=== PATIENT | male | born 1940 | race Caucasian/White ===

== ENCOUNTER → 2017-05-22 | Outpatient (CLI) | payer MEDICARE ==
[~2017-05-22] MED LIST: CARVEDILOL6.25 MG PO; CLOPIDOGREL75 MG PO; FENOFIBRATE160 MG PO; HYDROCHLOROTH12.5 M1 PO; LISINOPRIL10 MG PO; SIMVASTATIN10 MG PO
== END ==
LOC: CARD 09:33
PROVIDERS: ATTEND Family Medicine
DX: I63.9 Cerebral infarction, unspecified (principal); I65.23 Occlusion and stenosis of bilateral carotid arteries
CPT/HCPCS: 93880

== ENCOUNTER → 2017-06-07 | Outpatient (CLI) | payer MEDICARE ==
--- NOTE | 2017-06-07 09:54 | Diagnostic Imaging Report ---
Exam: Head CT without contrast History: Possible CVA, left hemiparesis Comparison studies: None Technique: Axial images were obtained from the skull base to the vertex. Coronal and sagittal images reconstructed from the axial data. Intravenous contrast: None Findings: Scalp: No abnormalities. Bones: No fractures, blastic or lytic lesions. Brain sulci: Mildly prominent. Ventricles: Mild compensatory dilatation. No hydrocephalus. Extra-axial spaces: No masses, no fluid collection. Parenchyma: No mass, acute hemorrhage or acute cortical vascular insults. Scattered hypodensities throughout the deep and subcortical supratentorial white matter are nonspecific but most compatible with chronic small vessel ischemic changes. Sellar/suprasellar region: No abnormalities. Craniocervical junction: Patent foramen magnum. No Chiari one malformation. Incidental findings: Atherosclerotic calcifications in the carotid siphons. IMPRESSION: 1. No mass, acute hemorrhage or acute cortical vascular insults. 2. Mild generalized volume loss. 3. Moderate chronic microvascular ischemic changes. Signed by: Dr. Daron Klein M.D. on 06/07/2017 9:50 AM
--- NOTE | 2017-06-07 11:22 | Diagnostic Imaging Report ---
PROCEDURE:ABDOMINAL ULTRASOUND COMPARISON:None. INDICATIONS:SMOKER/AAA FINDINGS: Liver: 15.4 cm. Increased hepatic parenchymal echogenicity. No focal mass. Main portal vein: 1.0 cm. Hepatopedal flow. Gallbladder: No echogenic calculi, gallbladder wall thickening, or pericholecystic fluid. Common Bile Duct: 4.0 mm. No echogenic filling defect. Sonographic Lawton's sign: Negative. Right kidney: 9.2 cm. No solid or cystic mass, echogenic calculi, or hydronephrosis. Normal parenchymal echogenicity. Right renal simple cyst. Left kidney: 8.8 cm. No solid or cystic mass, echogenic calculi, or hydronephrosis. Normal parenchymal echogenicity. Spleen: 8.1 cm. No focal mass. The pancreas and aorta were insufficiently visualized for comment secondary to overlying bowel gas. Inferior vena cava: Normal. Aorta: Normal. Ascites: None. CONCLUSION: 1. No acute sonographic abnormality. 2. Hepatic steatosis. Dictated by: Gasotn Al M.D. on 06/07/2017 at 11:23 Electronically approved by: Gaston Al M.D. on 06/07/2017 at 11:23
== END ==
LOC: CT 08:46
PROVIDERS: ATTEND Family Medicine
DX: I69.854 Hemiplegia and hemiparesis following other cerebrovascular disease affecting left non-dominant side (principal); K76.0 Fatty (change of) liver, not elsewhere classified; F17.210 Nicotine dependence, cigarettes, uncomplicated
CPT/HCPCS: 70450; 76700

== ENCOUNTER → 2017-06-21 | Outpatient (CLI) | payer MEDICARE ==
--- NOTE | 2017-06-21 14:06 | Diagnostic Imaging Report ---
MRI of the thoracic lumbar spine without IV contrast. History: Left foot numbness Comparison studies: MRI of the lumbar spine 07/29/2011 Technique: Sagittal, coronal and axial T2 , sagittal T1 and IR, axial spin density oblique. Intravenous contrast: None Findings: Number of lumbar vertebral bodies:5 Alignment: Texture scoliosis at the lower lumbar spine centered at L4-L5.Mild left lateral listhesis of L2 over L3 and L3 over. Mild grade 1 anterolisthesis of L5 over S1. L4. Normal alignment of the thoracic spine. Soft tissues: No T2 hyperintense inflammatory changes. Exophytic renal cyst measuring approximately 3 cm arising from the right interpolar region. Subcentimeter cyst is seen at the left kidney upper pole. Thickened wall of the descending thoracic aorta secondary to atherosclerotic disease. Paraspinal muscles: Fatty infiltration of the paraspinal musculature secondary to atrophy more prominent on the left side. Lower thoracic cord:Normal in signal and morphology. The tip of the conus is at L1-L2. Cauda equina: No masses. No arachnoiditis. Vertebrae: Normal in height and signal intensity. No compression fractures, infection or neoplasm. Degenerative changes: Partially visualized posterior disc osteophyte complexes with disc degeneration at the lower cervical spine results in at least moderate canal stenosis Thoracic spine: Diffuse disc degeneration with loss of T2 signal. Obliterated intervertebral disc at T3-4. Grossly patent canal and foramina. Subcentimeter perineural foraminal cysts at T5-6. Lumbar spine: L1-L2: Disc degeneration with loss of T2 signal. Mild diffuse disc bulge and mild facet hypertrophy with patent canal and foramina, stable. L2-L3: Disc degeneration with loss of T2 signal and obliterated intervertebral space towards the right and associated mild Modic type I changes. Asymmetric left disc bulge, mild facet hypertrophy and ligamentum flavum thickening results in mild canal stenosis., Moderate right and mild left foraminal narrowing, mildly progressed. L3-L4: Disc degeneration with obliterated intervertebral space and Modic type II changes, improved endplate edema. Diffuse disc bulge and mild facet hypertrophy results in no canal stenosis and mild bilateral foraminal narrowing, stable. L4-L5: Disc degeneration with obliterated intervertebral space more prominent on the left. Diffuse disc bulge, mild right and moderate left facet hypertrophy results in mild canal stenosis, moderate right and severe left foraminal narrowing, mildly progressed. L5-S1: Disc degeneration with loss of T2 signal. Uncoverage of the superior disc, asymmetric left disc bulge with superimposed small central disc protrusion and moderate bilateral facet hypertrophy results in mild canal stenosis, moderate right and mild left foraminal narrowing. Trace of fluid at the left facet joint with mild periarticular inflammatory changes, stable. Additional findings: None IMPRESSION: Severe left degenerative foraminal narrowing at L4-L5 with possible impingement of the L4 nerve root, mildly progressed since previous examination. Mild Modic type I changes at L2-L3, mildly progressed. Moderate right and mild left degenerative foraminal narrowing at L2-L3, mildly progressed. Mild degenerative changes of the thoracic spine with grossly patent canal and foramina. Other stable degenerative changes of the lumbar spine as described above Signed by: DR Orlin Hairston M.D. on 06/21/2017 2:02 PM
== END ==
LOC: MRI 09:33
PROVIDERS: ATTEND Specialist
DX: M54.5 Low back pain (principal); R53.1 Weakness; R29.2 Abnormal reflex
CPT/HCPCS: 72146; 72148

== ENCOUNTER → 2019-09-09 | Day surgery (SDC) | payer MEDICARE ==
[2019-09-04 10:19] LABS: BASOPHILS # (AUTO) 0.1 (0.0-0.1); BASOPHILS % 0.8 % (0.0-1.0); EOSINOPHILS # (AUTO) 0.2 (0.0-0.4); EOSINOPHILS % 2.6 % (0.0-6.0); HEMATOCRIT 42.1 % (38.2-49.6); HEMOGLOBIN 13.5 g/dL (14.0-18.0); LYMPHOCYTES # (AUTO) 1.8 (1.0-3.2); LYMPHOCYTES % 30.2 % (18.0-39.1); MEAN CORPUSCULAR HEMOGLOBIN 30.6 pg (28-32); MEAN CORPUSCULAR HGB CONC 32.1 g/dL (31-35); MEAN CORPUSCULAR VOLUME 95.5 fL (81-99); MONOCYTES # (AUTO) 0.5 (0.2-0.8); MONOCYTES % 7.4 % (4.4-11.3); NEUTROPHILS # (AUTO) 3.6 (2.1-6.9); NEUTROPHILS % 58.7 % (38.7-80.0); PLATELET COUNT 192 x10e3/uL (140-360); RED BLOOD COUNT 4.41 x10e6/uL (4.3-5.7)
[2019-09-04 10:35] LABS: INR 0.92; PROTHROMBIN TIME 12.9 seconds (11.9-14.5)
[2019-09-04 10:44] LABS: ALBUMIN 3.7 g/dL (3.5-5.0); ALBUMIN/GLOBULIN RATIO 1.2 (0.8-2.0); ANION GAP 13.2 mmol/L (8-16); CREATININE, SERUM 1.94 mg/dL (0.72-1.25); POTASSIUM 4.2 mmol/L (3.5-5.1)
[2019-09-09] VITALS (16 sets, daily range): BP systolic 89–174; BP diastolic 59–109
[~2019-09-09] VITALS: Ht 172.7 cm; Wt 72.6 kg
[~2019-09-09] MED LIST changes: +ASPIRIN 325 MG TAB ONE; +ATORVASTATIN CA10 MG PO; +BIVALRIUDIN 250 MG/VIAL VIAL IV ONE; +EPTIFIBATIDE 10 ML ONE; +FENTANYL CITRATE/PF 100MCG/2 ML INJ ONE; +GABAPENTIN300 MG PO; +HEPARIN SOD (PORCINE) 1000 UNIT/ML 30ML ONE; +HEPARIN SOD/SOD CHLORIDE 2,000 ML ONE; +HYDROCODONE/APAP 5MG-325MG TAB ONE; +IOPAMIDOL 370 MG/ML 200 ML INFUS..BTL INJ ONE; +LIDOCAINE HCL 2% LOCAL 20 ML VIAL ONE; +MIDAZOLAM HCL 2 MG/2 ML VIAL ONE; +NAMENDA10 MG PO; +NITROGLYCERIN/D5W 200 MCG/ML 250 ML ONE; +PRASUGREL 10 MG TAB ONE; +SODIUM CHLORIDE 0.9% 1000ML 1,000 ML ONE; +SODIUM CHLORIDE 0.9% 50ML 50 ML ONE; +VERAPAMIL HCL 2.5 MG/ML 2 ML VIAL ONE
--- NOTE | 2019-09-09 08:45 | NUR ---
0845 pm RECEIVING NOTE [facility]............................................................... Bedside report received from XXXX RN. Identifierx2. Alert oriented and appropriate, PERRLA, respirations even and unlabored to room air. Pulses x4 extremities equal and strong. Pedal pulses PT/DP X4 and marked. Cap fill brisk < 3 sec. TR band NO gross issue pain pallor pressure or dysrhythmia TR band down at 1100am Skin warm and dry integrity appears D/I. IV 20g to left posterior iv site , presents healthy w/o s/s of infiltration or complaint.Infusing 100cc hr 0.9 NS, Abdomen soft and supple. pt offered toileting, denies need to urinate or defecate. No personal affects with patient. Family at bedside. Understands plan of care. Currently w/o complaint of pain or need. ds/rn
--- NOTE | 2019-09-09 09:34 | Operative Report ---
DATE OF PROCEDURE: 09/09/2019 SURGEON: Cal Vallecillo MD INDICATIONS: Coronary artery disease, angina with abnormal stress test. COMPLICATIONS: None. BLOOD LOSS: Minimal. RECOMMENDATIONS: Dual antiplatelet therapy for life. DESCRIPTION OF PROCEDURE: Access was obtained in the right radial artery using ultrasound guidance. A 5-Kazakh sheath was placed. The patient received intravenous Angiomax, oral prasugrel, and aspirin for anticoagulation as well as intracoronary Integrilin one bolus. Left main, mild disease. Left anterior descending artery, proximal 90%. Circumflex and remaining left anterior descending artery, diffuse 30% to 50% stenosis. Right coronary artery patent stent. Distal to the stent, 50% stenosis. A decision was made to intervene on the left anterior descending artery. The left main was cannulated using IR-1, 5-Kazakh guiding catheter. Short Runthrough wire was advanced for support. Primary stent 3.0 x 12 mm Synergy deployed at 16 atmospheres. Excellent end result, less than 10% residual stenosis, LISBET-3 flow, no complications. Wire and guide sheath removed. TR band applied. The patient discharged home the same day. Cal Vallecillo MD KSJorge/MODL /[id number]
--- NOTE | 2019-09-09 11:00 | NUR ---
1100amRADIAL/PEDAL COMPRESSION REMOVAL NOTE: Initial Cuff volume 13 cc 11am -3cc Removed No hematoma/bleeding noted with normal neurovascular function. 1115am -5cc Removed No hematoma/ bleeding noted with normal neurovascular function. 1130am -5cc Removed No hematoma/bleeding noted with normal neurovascular function. Air removal completed. Stasis achieved sterile 2x2,Tegaderm, Coban dressing No hematoma, bleeding noted with normal neurovascular function. Wrist splint in place. Pt instructed on POC. Ds/Rn
--- NOTE | 2019-09-09 11:15 | NUR ---
[id number] Vallecillo c/o back discomfort ordered Narco 325/5 x1 side rails up,call light at bedside,bed in low position and locked aware not to get up dc time 1300pm ds/rn
--- NOTE | 2019-09-09 12:15 | NUR ---
1215 states pain better ,ambulated with assistance to bathroom. Tolerated well for dc at 1300pm NO gross issues pain,pallor pressure or dysrhythmia. ds/rn
--- NOTE | 2019-09-09 13:00 | NUR ---
1300pm [facility]GE NURSING NOTE Pt meets DC criteria. Rt radial assessed for s/s of complication and presence of hematoma. Skin warm, dry, no discolor, and pulses present. IV removed from left forarm Distal tip appears intact. VS WNL. Pt denies pain, sob, or need at this time. Family at BS. Review of discharge paperwork and follow up instructions. verbalized understanding. Pt to wheelchair and transported to front of hospital. Transferred to private vehicle under own strength w/o incident with DC paperwork in hand. - luis/kaya
== END | disposition home or self-care (01) ==
LOC: CATH LAB 06:20
PROVIDERS: ATTEND Internal Medicine Interventional Cardiology
DX: I25.119 Atherosclerotic heart disease of native coronary artery with unspecified angina pectoris (principal); I10 Essential (primary) hypertension; E78.00 Pure hypercholesterolemia, unspecified; Z85.828 Personal history of other malignant neoplasm of skin; Z83.3 Family history of diabetes mellitus; Z82.49 Family history of ischemic heart disease and other diseases of the circulatory system; Z95.5 Presence of coronary angioplasty implant and graft; Z01.812 Encounter for preprocedural laboratory examination; Z11.59 Encounter for screening for other viral diseases
CPT/HCPCS: 93454; C9600; 36415; 80053; 85025; 85610; 92928; 99152; 99153; C1769; C1874; C1887; J0583; J1327; J1644; J2001; J2250; J3010; J7030; Q9967; U0002

== ENCOUNTER 2020-10-15 09:03 | Outpatient (RCR) | payer MEDICARE ==
[~2020-10-15 09:03] MED LIST changes: -ASPIRIN 325 MG TAB ONE; -BIVALRIUDIN 250 MG/VIAL VIAL IV ONE; -EPTIFIBATIDE 10 ML ONE; -FENTANYL CITRATE/PF 100MCG/2 ML INJ ONE; -HEPARIN SOD (PORCINE) 1000 UNIT/ML 30ML ONE; -HEPARIN SOD/SOD CHLORIDE 2,000 ML ONE; -HYDROCODONE/APAP 5MG-325MG TAB ONE; -IOPAMIDOL 370 MG/ML 200 ML INFUS..BTL INJ ONE; -LIDOCAINE HCL 2% LOCAL 20 ML VIAL ONE; -MIDAZOLAM HCL 2 MG/2 ML VIAL ONE; -NITROGLYCERIN/D5W 200 MCG/ML 250 ML ONE; -PRASUGREL 10 MG TAB ONE; -SODIUM CHLORIDE 0.9% 1000ML 1,000 ML ONE; -SODIUM CHLORIDE 0.9% 50ML 50 ML ONE; -VERAPAMIL HCL 2.5 MG/ML 2 ML VIAL ONE
== END 2020-10-19 ==
LOC: WCC 09:03
PROVIDERS: ATTEND Internal Medicine Infectious Disease
DX: I87.311 Chronic venous hypertension (idiopathic) with ulcer of right lower extremity (principal); I87.312 Chronic venous hypertension (idiopathic) with ulcer of left lower extremity; L97.811 Non-pressure chronic ulcer of other part of right lower leg limited to breakdown of skin; L97.321 Non-pressure chronic ulcer of left ankle limited to breakdown of skin; L97.421 Non-pressure chronic ulcer of left heel and midfoot limited to breakdown of skin; L97.821 Non-pressure chronic ulcer of other part of left lower leg limited to breakdown of skin; I87.2 Venous insufficiency (chronic) (peripheral); R60.0 Localized edema; L84 Corns and callosities; F03.90 Unspecified dementia, unspecified severity, without behavioral disturbance, psychotic disturbance, mood disturbance, and anxiety; R26.89 Other abnormalities of gait and mobility; R32 Unspecified urinary incontinence

== ENCOUNTER 2020-11-05 09:50 | Outpatient (RCR) | payer MEDICARE ==
[2020-11-10] MEDS ORDERED: VITAMIN D3250 MC1 (17:39)
[2020-11-10] MEDS ORDERED: CEFDINIR300 MG PO (18:21)
[2020-11-10] MEDS ORDERED: NYSTATIN-TRIAMC15 GM TOP (18:21)
== END 2020-11-18 ==
LOC: WCC 09:50
PROVIDERS: ATTEND Internal Medicine Infectious Disease
DX: L89.893 Pressure ulcer of other site, stage 3 (principal); I87.311 Chronic venous hypertension (idiopathic) with ulcer of right lower extremity; I87.312 Chronic venous hypertension (idiopathic) with ulcer of left lower extremity; L97.811 Non-pressure chronic ulcer of other part of right lower leg limited to breakdown of skin; L97.321 Non-pressure chronic ulcer of left ankle limited to breakdown of skin; L97.421 Non-pressure chronic ulcer of left heel and midfoot limited to breakdown of skin; L97.821 Non-pressure chronic ulcer of other part of left lower leg limited to breakdown of skin; S81.001A Unspecified open wound, right knee, initial encounter; I87.2 Venous insufficiency (chronic) (peripheral); R60.0 Localized edema; L84 Corns and callosities; F03.90 Unspecified dementia, unspecified severity, without behavioral disturbance, psychotic disturbance, mood disturbance, and anxiety; R26.89 Other abnormalities of gait and mobility; R32 Unspecified urinary incontinence
CPT/HCPCS: 36415; 85027

== ENCOUNTER 2020-11-10 17:02 | Emergency (ER) | payer MEDICARE ==
[~2020-11-10] VITALS: Ht 170.2 cm; Wt 74.8 kg
[2020-11-10] MEDS ORDERED: VITAMIN D3250 MC1 (17:39)
[2020-11-10] MEDS ORDERED: CEFDINIR300 MG PO (18:21)
[2020-11-10] MEDS ORDERED: NYSTATIN-TRIAMC15 GM TOP (18:21)
== END 2020-11-10 18:45 | disposition home or self-care (01) ==
LOC: FSED 17:40
DX: B35.4 Tinea corporis (principal); N30.00 Acute cystitis without hematuria; I10 Essential (primary) hypertension; E78.5 Hyperlipidemia, unspecified; I25.10 Atherosclerotic heart disease of native coronary artery without angina pectoris; M54.9 Dorsalgia, unspecified; G89.29 Other chronic pain; Z86.73 Personal history of transient ischemic attack (TIA), and cerebral infarction without residual deficits; Z95.5 Presence of coronary angioplasty implant and graft
CPT/HCPCS: 81003; 99282

== ENCOUNTER 2020-11-29 10:05 | Inpatient (IN) | payer MEDICARE ==
[~2020-11-29] VITALS: Ht 170.2 cm; Wt 54.4 kg
[2020-11-29] VITALS (7 sets, daily range): BP systolic 109–135; BP diastolic 77–101
[~2020-11-29 10:05] MED LIST changes: +CEFDINIR300 MG PO; +NYSTATIN-TRIAMC15 GM TOP; +VITAMIN D3250 MC1
[2020-11-29 10:34] LABS: BASOPHILS % 0.3 % (0.0-1.0); HEMATOCRIT 52.7 % (38.2-49.6); LYMPHOCYTES # (AUTO) 1.3 (1.0-3.2); LYMPHOCYTES % 21.7 % (18.0-39.1); MEAN CORPUSCULAR HEMOGLOBIN 31.4 pg (28-32); MEAN CORPUSCULAR HGB CONC 32.3 g/dL (31-35); MEAN CORPUSCULAR VOLUME 97.4 fL (81-99); MONOCYTES # (AUTO) 0.6 (0.2-0.8); NEUTROPHILS # (AUTO) 4.2 (2.1-6.9); NEUTROPHILS % 67.5 % (38.7-80.0); PLATELET COUNT 104 x10e3/uL (140-360); RED BLOOD COUNT 5.41 x10e6/uL (4.3-5.7); RED CELL DISTRIBUTION WIDTH 19.1 % (11.7-14.4)
[2020-11-29 10:53] LABS: ALBUMIN 3.5 g/dL (3.5-5.0); ALBUMIN/GLOBULIN RATIO 1.2 (0.8-2.0); ANION GAP 21.1 mmol/L (8-16); CALCIUM 9.3 mg/dL (8.4-10.2); CREATININE, SERUM 2.05 mg/dL (0.72-1.25); POTASSIUM 5.1 mmol/L (3.5-5.1)
[2020-11-29] MEDS ORDERED: SODIUM CHLORIDE 0.9% 1000ML 1,000 ML IV SCH (11:45)
[2020-11-29] MEDS ORDERED: ONDANSETRON HCL INJ 2MG/ML 2ML 2 MG/ML VIAL IV PRN (11:45)
[2020-11-29 12:04] LABS: CLARITY,URINE CLOUDY (CLEAR); COLOR,URINE AMBER (YELLOW); KETONES,URINE TRACE (NEGATIVE); LEUKOCYTE ESTERASE ,URINE NEGATIVE (NEGATIVE); NITRITE,URINE NEGATIVE (NEGATIVE); PROTEIN,URINE DIPSTICK 2+ (NEGATIVE)
[2020-11-29 12:09] LABS: BACTERIA,URINE RARE /HPF; WBC,URINE (MAN) 0-5 /HPF (0-5)
[2020-11-29 12:10] LABS: AMORPHOUS SEDIMENT,URINE FEW (FEW); MUCUS,URINE FEW (RARE)
[2020-11-29] MEDS ORDERED: TRAZODONE HCL50 MG PO (14:20)
[2020-11-29] MEDS: DEXTROSE 5%/0.45% SOD CHL 1,000 ML IV SCH ×2 (21:20→23:05)
[2020-11-29] MEDS ORDERED: FUROSEMIDE INJ 10 MG/ML 2 ML VIAL IV ONE (23:00)
[2020-11-29] MEDS ORDERED: FUROSEMIDE INJ 10 MG/ML 4 ML VIAL ONE (23:11)
[2020-11-30] VITALS (8 sets, daily range): BP systolic 111–172; BP diastolic 69–99
[2020-11-30 06:31] LABS: BASOPHILS % 0.1 % (0.0-1.0); HEMATOCRIT 51.8 % (38.2-49.6); HEMOGLOBIN 16.8 g/dL (14.0-18.0); LYMPHOCYTES # (AUTO) 0.7 (1.0-3.2); LYMPHOCYTES % 7.7 % (18.0-39.1); MEAN CORPUSCULAR HEMOGLOBIN 31.3 pg (28-32); MEAN CORPUSCULAR HGB CONC 32.4 g/dL (31-35); MEAN CORPUSCULAR VOLUME 96.6 fL (81-99); MONOCYTES % 10.1 % (4.4-11.3); NEUTROPHILS # (AUTO) 7.9 (2.1-6.9); NEUTROPHILS % 81.5 % (38.7-80.0); PLATELET COUNT 92 x10e3/uL (140-360); RED BLOOD COUNT 5.36 x10e6/uL (4.3-5.7); RED CELL DISTRIBUTION WIDTH 19.3 % (11.7-14.4)
[2020-11-30 06:42] LABS: ANION GAP 28.7 mmol/L (8-16); CALCIUM 8.6 mg/dL (8.4-10.2); CREATININE, SERUM 2.36 mg/dL (0.72-1.25); POTASSIUM 5.7 mmol/L (3.5-5.1)
[2020-11-30] MEDS ORDERED: DOCUSATE SODIUM 100 MG CAP PO PRN ×2 (07:00→12:45)
[2020-11-30] MEDS ORDERED: ACETAMINOPHEN 325 MG TAB PO PRN (07:00)
[2020-11-30] MEDS ORDERED: DEXTROSE 50% SYRINGE 50 ML IV ONE ×2 (07:11→07:15)
[2020-11-30] MEDS: BENZONATATE 100 MG CAP PO SCH ×3 (08:20→20:44)
[2020-11-30] MEDS: ALBUTEROL/IPRATROPIUM 3 ML NEB NEB PRN (11:05)
[2020-11-30 13:33] LABS: ANION GAP 24.5 mmol/L (8-16); CALCIUM 8.6 mg/dL (8.4-10.2); CREATININE, SERUM 2.66 mg/dL (0.72-1.25); POTASSIUM 5.5 mmol/L (3.5-5.1)
[2020-11-30] MEDS: BALSAM PERU/CASTOR OIL 60 GM OINT...G. TP SCH (15:46)
[2020-12-01] VITALS (9 sets, daily range): BP systolic 107–124; BP diastolic 65–83
[2020-12-01] MEDS: DEXTROSE 5%/0.45% SOD CHL 1,000 ML IV SCH ×2 (02:45→06:45)
[2020-12-01] MEDS: BENZONATATE 100 MG CAP PO SCH ×3 (06:00→15:56)
[2020-12-01] MEDS ORDERED: FUROSEMIDE INJ 10 MG/ML 4 ML VIAL ONE (06:32)
[2020-12-01] MEDS ORDERED: FUROSEMIDE INJ 10 MG/ML 2 ML VIAL IV ONE (07:10)
[2020-12-01 07:44] LABS: CALCIUM 8.2 mg/dL (8.4-10.2); CREATININE, SERUM 2.97 mg/dL (0.72-1.25)
[2020-12-01 08:18] LABS: MAGNESIUM 1.9 MG/DL (1.3-2.1); PHOSPHORUS 5.8 MG/DL (2.3-4.7)
[2020-12-01] MEDS: MULTIVITAMINS/MINERALS TAB PO SCH (09:00)
[2020-12-01] MEDS ORDERED: ASPIRIN 81 MG CHEW TAB PO SCH (09:00)
[2020-12-01] MEDS ORDERED: METHYLPREDNISOLONE SOD SUCC 1,000 MG/8 ML VIAL IV SCH (09:30)
[2020-12-01] MEDS ORDERED: SODIUM CHLORIDE 0.9% IV SCH (10:30)
[2020-12-01] MEDS ORDERED: METHYLPREDNISOLONE SOD SUCC IV SCH (10:30)
[2020-12-01] MEDS: BALSAM PERU/CASTOR OIL 60 GM OINT...G. TP SCH (10:41)
[2020-12-01] MEDS ORDERED: SODIUM CHLORIDE 0.9% IV ONE (11:00)
[2020-12-01] MEDS ORDERED: METHYLPREDNISOLONE SOD SUCC IV ONE (11:00)
[2020-12-01] MEDS: FUROSEMIDE INJ 100 MG in SODIUM CHLORIDE 0.9% 100 ML 90 ML IV SCH (11:36)
[2020-12-02] VITALS (7 sets, daily range): BP systolic 102–126; BP diastolic 56–90
[2020-12-02 04:57] LABS: BASOPHILS % 0.2 % (0.0-1.0); HEMATOCRIT 55.7 % (38.2-49.6); HEMOGLOBIN 18.2 g/dL (14.0-18.0); LYMPHOCYTES # (AUTO) 0.2 (1.0-3.2); LYMPHOCYTES % 2.7 % (18.0-39.1); MEAN CORPUSCULAR HEMOGLOBIN 31.6 pg (28-32); MEAN CORPUSCULAR HGB CONC 32.7 g/dL (31-35); MEAN CORPUSCULAR VOLUME 96.7 fL (81-99); MONOCYTES # (AUTO) 0.1 (0.2-0.8); NEUTROPHILS # (AUTO) 5.7 (2.1-6.9); NEUTROPHILS % 94.8 % (38.7-80.0); PLATELET COUNT 53 x10e3/uL (140-360); RED BLOOD COUNT 5.76 x10e6/uL (4.3-5.7); RED CELL DISTRIBUTION WIDTH 20.3 % (11.7-14.4)
[2020-12-02 05:07] LABS: INR 2.86; PROTHROMBIN TIME 30.9 seconds (11.9-14.5)
[2020-12-02 05:32] LABS: ALBUMIN 2.8 g/dL (3.5-5.0); ANION GAP 27.2 mmol/L (8-16); CALCIUM 7.8 mg/dL (8.4-10.2); CREATININE, SERUM 3.17 mg/dL (0.72-1.25); MAGNESIUM 1.9 MG/DL (1.3-2.1); PHOSPHORUS 6.4 MG/DL (2.3-4.7); POTASSIUM 5.2 mmol/L (3.5-5.1)
[2020-12-02] MEDS: BENZONATATE 100 MG CAP PO SCH ×3 (06:00→21:09)
[2020-12-02 06:13] LABS: LYMPHOCYTES % (MANUAL) 1 % (19-48); MONOCYTES % (MANUAL) 3 % (3.4-9.0); NEUTROPHILS % (MANUAL) 96 % (40-74); NUCLEATED RED BLOOD CELLS 1
[2020-12-02 06:14] LABS: PLATELET ESTIMATE MODERATELY DECREASED; PLATELET MORPHOLOGY COMMENT NORMAL; RBC MORPHOLOGY COMMENT NORMAL
[2020-12-02] MEDS: FUROSEMIDE INJ 100 MG in SODIUM CHLORIDE 0.9% 100 ML 90 ML IV SCH (06:48)
[2020-12-02] MEDS: MULTIVITAMINS/MINERALS TAB PO SCH (09:00)
[2020-12-02] MEDS: BALSAM PERU/CASTOR OIL 60 GM OINT...G. TP SCH (11:05)
[2020-12-02] MEDS ORDERED: SODIUM BICARBONATE 8.4% INJ 50 ML SYR IV ONE (11:10)
[2020-12-02] MEDS ORDERED: SOD POLYSTYRENE SULFONATE SUSP 15 GM/60 ML BTL PO ONE (11:10)
[2020-12-02] MEDS: SODIUM BICARBONATE 8.4% SYRING 75 ML in DEXTROSE 5%/0.45% SOD CHL 1,000 ML IV SCH (12:51)
[2020-12-02] MEDS ORDERED: SOD POLYSTYRENE SULFONATE SUSP 15 GM/60 ML BTL PR ONE (13:45)
[2020-12-02] MEDS ORDERED: PHYTONADIONE 10 MG/ML AMP SQ ONE (14:30)
[2020-12-02] MEDS: SODIUM BICARBONATE 650 MG TAB PO SCH (17:00)
[2020-12-02 19:55] LABS: INR 2.41
[2020-12-02 20:06] LABS: ALBUMIN 2.7 g/dL (3.5-5.0); ALBUMIN/GLOBULIN RATIO 1.1 (0.8-2.0); ANION GAP 25.1 mmol/L (8-16); CALCIUM 7.8 mg/dL (8.4-10.2); CREATININE, SERUM 3.46 mg/dL (0.72-1.25)
[2020-12-02 20:08] LABS: POTASSIUM 5.1 mmol/L (3.5-5.1)
[2020-12-02] MEDS ORDERED: FUROSEMIDE INJ 100 MG in SODIUM CHLORIDE 0.9% 100 ML 90 ML IV SCH (23:00)
[2020-12-03] VITALS (8 sets, daily range): BP systolic 107–128; BP diastolic 74–91
[2020-12-03] MEDS: ALBUTEROL/IPRATROPIUM 3 ML NEB NEB PRN (03:04)
[2020-12-03] MEDS: BENZONATATE 100 MG CAP PO SCH ×3 (05:01→21:40)
[2020-12-03 05:23] LABS: ALBUMIN 2.8 g/dL (3.5-5.0); ALBUMIN/GLOBULIN RATIO 1.1 (0.8-2.0); ANION GAP 21.6 mmol/L (8-16); CALCIUM 7.7 mg/dL (8.4-10.2); CREATININE, SERUM 3.79 mg/dL (0.72-1.25); MAGNESIUM 1.9 MG/DL (1.3-2.1); PHOSPHORUS 5.9 MG/DL (2.3-4.7); POTASSIUM 4.6 mmol/L (3.5-5.1)
[2020-12-03] MEDS: TAMSULOSIN HCL 0.4 MG CAP PO SCH ×2 (08:45→21:00)
[2020-12-03] MEDS: MULTIVITAMINS/MINERALS TAB PO SCH (08:46)
[2020-12-03] MEDS: SODIUM BICARBONATE 650 MG TAB PO SCH ×2 (08:46→17:00)
[2020-12-03] MEDS: BALSAM PERU/CASTOR OIL 60 GM OINT...G. TP SCH (08:47)
[2020-12-03] MEDS: SODIUM BICARBONATE 8.4% SYRING 75 ML in DEXTROSE 5%/0.45% SOD CHL 1,000 ML IV SCH (17:10)
[2020-12-04] VITALS (8 sets, daily range): BP systolic 96–118; BP diastolic 54–92
[2020-12-04] MEDS: ALBUTEROL/IPRATROPIUM 3 ML NEB NEB PRN (04:08)
[2020-12-04] MEDS: SODIUM BICARBONATE 8.4% SYRING 75 ML in DEXTROSE 5%/0.45% SOD CHL 1,000 ML IV SCH ×2 (04:25→22:53)
[2020-12-04] MEDS: BENZONATATE 100 MG CAP PO SCH ×3 (04:25→21:10)
[2020-12-04 05:27] LABS: ALBUMIN 2.7 g/dL (3.5-5.0); ANION GAP 25.6 mmol/L (8-16); CALCIUM 7.4 mg/dL (8.4-10.2); CREATININE, SERUM 4.42 mg/dL (0.72-1.25); POTASSIUM 5.6 mmol/L (3.5-5.1)
[2020-12-04] MEDS ORDERED: SOD POLYSTYRENE SULFONATE SUSP 15 GM/60 ML BTL PR ONE (06:15)
[2020-12-04] MEDS: MULTIVITAMINS/MINERALS TAB PO SCH (09:00)
[2020-12-04] MEDS: SODIUM BICARBONATE 650 MG TAB PO SCH ×3 (09:00→19:50)
[2020-12-04] MEDS: TAMSULOSIN HCL 0.4 MG CAP PO SCH ×2 (09:00→19:49)
[2020-12-04] MEDS ORDERED: HALOPERIDOL LACTATE 5 MG/ML VIAL ONE (11:36)
[2020-12-04] MEDS: HALOPERIDOL LACTATE 5 MG/ML VIAL IM PRN (11:45)
[2020-12-04] MEDS: BALSAM PERU/CASTOR OIL 60 GM OINT...G. TP SCH (11:57)
[2020-12-04] MEDS ORDERED: SODIUM BICARBONATE 8.4% INJ 50 ML SYR IV NR (16:45)
[2020-12-05 00:59] VITALS: BP 122/75
[2020-12-05] MEDS: HALOPERIDOL LACTATE 5 MG/ML VIAL IM PRN (01:17)
[2020-12-05 05:04] VITALS: BP 124/71
[2020-12-05] MEDS: BENZONATATE 100 MG CAP PO SCH ×3 (05:07→21:18)
[2020-12-05] MEDS: SODIUM BICARBONATE 8.4% SYRING 75 ML in DEXTROSE 5%/0.45% SOD CHL 1,000 ML IV SCH ×3 (08:55→19:27)
[2020-12-05] MEDS: MULTIVITAMINS/MINERALS TAB PO SCH (09:00)
[2020-12-05] MEDS: TAMSULOSIN HCL 0.4 MG CAP PO SCH ×2 (09:00→17:11)
[2020-12-05] MEDS: SODIUM BICARBONATE 650 MG TAB PO SCH ×3 (09:00→20:31)
[2020-12-05] MEDS: BALSAM PERU/CASTOR OIL 60 GM OINT...G. TP SCH (09:18)
[2020-12-05 11:16] VITALS: BP 114/78
[2020-12-05 15:44] VITALS: BP 104/57
[2020-12-05] MEDS ORDERED: DEXTROSE 50% SYRINGE 50 ML IV PRN (20:00)
[2020-12-05 20:15] VITALS: BP 136/94
[2020-12-05 20:45] VITALS: BP 136/94
== END 2020-12-06 01:45 | disposition expired | DRG 291 ==
LOC: ER 10:15 → ERHOLD 11:37 → MED/SURG2 13:32 → OBSVTOIN 11-30 12:52
PROVIDERS: ADMIT Internal Medicine; ATTEND Internal Medicine
DX: I13.2 Hypertensive heart and chronic kidney disease with heart failure and with stage 5 chronic kidney disease, or end stage renal disease (principal); I50.23 Acute on chronic systolic (congestive) heart failure; K72.00 Acute and subacute hepatic failure without coma; E43 Unspecified severe protein-calorie malnutrition; Z68.1 Body mass index [BMI] 19.9 or less, adult; E87.2 Acidosis; D68.9 Coagulation defect, unspecified; N18.5 Chronic kidney disease, stage 5; N17.9 Acute kidney failure, unspecified; R62.7 Adult failure to thrive; E78.5 Hyperlipidemia, unspecified; F03.90 Unspecified dementia, unspecified severity, without behavioral disturbance, psychotic disturbance, mood disturbance, and anxiety; D63.8 Anemia in other chronic diseases classified elsewhere; Z20.822 Contact with and (suspected) exposure to COVID-19; Z66 Do not resuscitate; Z86.73 Personal history of transient ischemic attack (TIA), and cerebral infarction without residual deficits; I27.29 Other secondary pulmonary hypertension; I95.9 Hypotension, unspecified; G62.9 Polyneuropathy, unspecified; E87.5 Hyperkalemia
CPT/HCPCS: 36415; 70450; 71045; 74018; 74176; 76700; 76770; 80048; 80053; 81001; 82948; 83735; 83880; 84100; 84165; 84166; 84484; 85025; 85610; 86021; 86160; 86225; 93005; 93306; 94640; 96360; 96361; 97139; 99251; 99284; G0378; J1630; J1940; J2930; J3430; J7030; J7799; U0002